=== PATIENT | female | born 1990 | race Caucasian/White ===

== ENCOUNTER 2016-09-21 16:04 | Emergency (ER) | payer MEDICAID ==
[2016-09-21 16:42] VITALS: BP 151/101
[2016-09-21] MEDS ORDERED: NALBUPHINE HCL 20 MG/ML AMPUL IM ONE (17:58)
[2016-09-21] MEDS ORDERED: NALBUPHINE HCL 20 MG/ML AMPUL ONE (18:02)
--- NOTE | 2016-09-21 18:04 | ERNOTE ---
Back Pain ER HPI Date of Service: 09/21/16 Time Seen by Provider: 09/21/16 17:36 Source: patient Exam Limitations: no limitations Immunizations: IMMUNIZATION HX Immunizations Up to Date Yes History of Influenza Vaccine Yes Hx Pneumococcal Vaccination No Allergies/Adverse Reactions: Allergies No Known Allergies Allergy (Verified 09/21/16 16:41) Home Medications: HOME MEDICATIONS Ibuprofen [Motrin] 600 mg PO Q6H PRN #40 tab 02/23/15 [Last Taken Unknown] Sulfamethoxazole/Trimethoprim [Bactrim Ds] 1 tab PO BID #20 tab 02/23/15 [Last Taken Unknown] Naproxen [Naprosyn] 500 mg PO BID PRN #60 tab 09/21/16 [Last Taken Unknown] Sulfamethoxazole/Trimethoprim [Bactrim Ds] 1 tab PO BID #28 tab 09/21/16 [Last Taken Unknown] Narrative: Pt. comes in with c/o having tailbone pain after having urinary obstruction and constipation for a week. Pt. states that she has been having pain since onset of symptoms and has had similar symptoms in the past which resolved with treatment of IBS. Pt. states that symptoms worsen with sitting on her tailbone and are relieved by squatting. 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 follow up with Dr Deleon in Clinic tomorrow. - Results and Orders Patient's Lab Results:: I have reviewed the patient's lab results. - Vital Signs Patient's Vital Signs:: I have reviewed the patient's vital signs. Vital Signs: Vital Signs 09/21/16 16:38 Temperature 36.7 C Pulse Rate 73 Respiratory 14 Rate Blood Pressure 151/101 O2 Sat by Pulse 97 Oximetry - X-Ray X-Ray #1 X-Ray: lumbosacral Interpretation: Reviewed by me X-ray Comments: no acute LS abnormality - Progress/Reassessment Chief Complaint: Back Pain Departure Clinical Impression: Pilonidal abscess - Departure Disposition: Home self-care Condition: Good Instructions: Abscess, [id number] Additional Instructions: Please follow up with Dr Deleon by calling his office first thing in the morning for first available appointment. Referrals: [Primary Care Provider] - Prescriptions: Naproxen [Naprosyn] 500 mg PO BID PRN #60 tab PRN Reason: Pain Sulfamethoxazole/Trimethoprim [Bactrim Ds] 1 tab PO BID #28 tab
[2016-09-21 18:23] LABS: Hematocrit 45.8 % (37.0-47.0); Hemoglobin 14.9 gm/dL (12.5-16.0); Mean Cell Volume 83.1 fl (78-100); Mean Corpuscular Hgb Conc 32.5 g/dl (32-36); Mean Platelet Volume 9.5 fl (6.0-9.5); Neutrophil # 3.6 K/mm3 (1.3-6.0); Neutrophil % 63.1 % (42-75.0); Platelet Count 222 K/mm3 (150-450); Red Blood Count 5.51 M/mm3 (4.2-5.4); Red Cell Distribution Width 12.6 % (11.5-14.0); White Blood Count 5.7 K/mm3 (4.0-10.5)
[2016-09-21 18:34] LABS: Urine Bilirubin Negative (NEGATIVE); Urine Blood Negative /ul (NEGATIVE); Urine Ketone Negative (NEGATIVE); Urine Nitrite Negative (NEGATIVE); Urine Protein Negative (NEGATIVE); Urine Specific Gravity 1.025 SP.GR. (1.005-1.010); Urine Urobilinogen Normal (NORMAL); Urine pH 6.5 pH (5.0-7.0)
[2016-09-21 18:36] LABS: Albumin * 4.5 gm/dl (3.4-5.0); Anion Gap 15.8 mmol/L (6.8-13.8); BUN/Creatinine Ratio 12.2 (9.0-21.6); Bilirubin, Total 0.6 mg/dL (0.0-1.1); Ca. Corrected For Albumin 8.9 mg/dL (8.4-10.2); Calcium * 9.6 mg/dL (7.9-10.9); Carbon Dioxide 24.8 mmol/L (24-32.6); Potassium 3.6 mmol/L (3.4-4.6); Total Protein 8.4 gm/dL (6.2-8.2)
[2016-09-21 18:48] LABS: Urine Appearance Slightly Cloudy; Urine Bacteria 3+; Urine Color Yellow; Urine RBC None Seen /hpf (0-5); Urine WBC None Seen /hpf (0-5)
== END 2016-09-21 19:31 | disposition home or self-care (01) ==
LOC: ER 16:04
DX: L05.01 Pilonidal cyst with abscess (principal)